=== PATIENT | female | born 1960 | race African-American/Black ===

== ENCOUNTER 2019-11-28 03:09 | Inpatient (IN) | payer SELFPAY ==
[~2019-11-28] VITALS: Ht 170.2 cm; Wt 119.3 kg
--- NOTE | ~2019-11-28 | CN ---
PATIENT NAME:ANSLEY DAS MEDICAL RECORD: [id number] : 58 LOCATION:D.MS Michael2228 ADMIT DATE: 11/28/19 ACCOUNT: [id number] CONSULTING PHYSICIAN: IRVING CARPIO MD REFERRING PHYSICIAN: COLT CANADA MD DATE OF CONSULTATION: 12/04/2019 CONSULT REQUESTING PHYSICIAN: Dr. Hale REASON FOR CONSULTATION: Right-sided pleural effusion, more than the left. HISTORY OF PRESENT ILLNESS: Ms. Das is a 59-year-old female who was transferred from [place] with a common bile duct obstruction and gallstones. The patient went for ERCP and then she underwent laparoscopic cholecystectomy. She has a CTA of the chest yesterday for pulmonary embolism. There is no pulmonary embolism, but the CTA did show there is a moderate large sized right-sided pleural effusion, small on the left. There is associated compressive atelectasis. The patient denies any chest pain. There are no fever and chill, no night sweats. There is no significant cough. REVIEW OF SYSTEMS: As in history of present illness. PAST SURGICAL HISTORY: 1. Tonsillectomy. 2. . 3. Hysterectomy. ALLERGIES: No known drug allergy. MEDICATIONS: On [employer] is reviewed. PERSONAL AND SOCIAL HISTORY: The patient is a nonsmoker, nondrinker. FAMILY HISTORY: Noncontributory. PHYSICAL EXAMINATION: GENERAL: Now, the patient is lying comfortably in bed. She is wearing nasal cannula. She is not in acute distress. VITAL SIGNS: The blood pressure is 188/106, pulse is 68, respiration 20, temperature 98.8, SpO2 is 98% on 2 liters nasal cannula. HEENT: Conjunctivae are pink. Sclerae nonicteric. NECK: Supple, no JVD. CHEST: There are decreased breath sounds at the right base with dullness on percussion. There are crackles. HEART: Rhythm regular, normal sound, no murmur. ABDOMEN: Soft, bowel sounds present. No hepatosplenomegaly. RECTAL: Deferred. EXTREMITIES: No cyanosis, no clubbing, no pedal edema. CENTRAL NERVOUS SYSTEM: The patient is awake and alert. There are no obvious cranial nerve abnormalities. The gait was not tested. LABORATORY DATA: CBC: The WBC is 10.7, hemoglobin 10.9, hematocrit 33.9, the platelet count 221. Chemistry: Sodium is 137, potassium 3.1, BUN is 6, creatinine 0.6. CONSULT REPORT [id number] DASANSLEY IMPRESSION: 1. Right-sided more pleural effusion on the left. Rule out congestive heart failure, possible fluid overload. 2. Acute hypoxic respiratory failure. 3. Atelectasis, right lower lobe, doubt pneumonia. 4. Status post laparoscopic cholecystectomy. 5. Cholelithiasis. 6. Hypertension. 7. Hypokalemia. RECOMMENDATIONS: 1. We will proceed with the thoracentesis. 2. Hold on antibiotic. 3. Check the proBNP and cardiac echo. 4. Hep-Lock the IV. 5. Further recommendation after the thoracentesis. Dr. Hale, thank you for involving me in the care of Ms. Das. TRANSINT:[id number] Voice Confirmation ID: [id number] DOCUMENT ID: [id number] IRVING CARPIO MD CC: [id number] DICTATION DATE: 12/04/191537 AUTOMOTIVE SOFTWARE ENGINEER: 12/05/19 0328 ADM IN [facility] [address] [place] [address]
--- NOTE | ~2019-11-28 | HEMODYNAMI ---
PATIENT:ANSLEY DAS MEDICAL RECORD: [id number] : 58 LOCATION:D.MS Michael2228 ADMISSION DATE: 11/28/19 Generatedon:11/29/201915:48 Patient name: ANSLEY DAS Patient #: [id number] SSN: D OB: 1960 Date of study: 11/29/2019 Page: Of Hemodynamic Procedure Report Patient Data Patient Demographics Procedure consent was obtained First Name: ANSLEY Gender: Female Last Name: THIAGO : 1960 Patient #: [id number] Age: 59 year(s) Race: Black Additional ID: [id number] Contact details Address: [address] [place] [address] State: [place] City: [place] Zip code: [address] Past Medical History Allergies: No known allergies Admission Admission Data Admission Date: 11/28/2019 Admission Time: 4:26 Room #: D.2228 Height (in.): 67 BSA: 2.28 (m2) Height (cm.): 170.18 BMI: 41.35 (kg/m2) Weight (lbs.): 264 Weight (kg.): 119.75 Procedure Procedure Types Cath Procedure Peripheral Cath Diagnostic Procedure Claims Support Specialist Peripheral Procedures Biliary Percutaneous Biliary Int/Ext Drain Placement Procedure Description Procedure Date Procedure Date: 11/29/2019 Procedure Start Time: 14:18 Procedure Staff Name Hayley Swain MD Performing Physician Lizeth Mae RT Construction Trench Digger Homero Taylor Jr, CRNA Additional personnel Zaira Whyte RN Nurse Antelmo Olivier RT Scrub Procedure Data Cath Procedure Fluoroscopy Diagnostic fluoroscopy Total fluoroscopy Time: time: 20.2 min 20.2 min Diagnostic fluoroscopy Total fluoroscopy dose: 968 dose: 968 mGy mGy Contrast Material Contrast Material Type Amount (ml) Isovue 300 80 Procedure Medications Medication Administration Route Dosage Heparin Flush Bag added to field 1 bags (1000units/500ml NS) Lidocaine 1% added to field 20 Hemodynamics Rest BSA: 2.28 (m2) O2 Consumption: Estimated: 219.73 (ml/min) O2 Consumption indexed : Estimated:96.37 (ml/min/m) Heart Rate: 74 (bpm) Snapshots Pre Cath Intra NCS Post Cath Vital Signs Time Heart Resp SPO2 etCO2 NIBP (mmHg) Rhythm Pain Sedation Rate (ipm) (%) (mmHg) Status Level (bpm) 13:58:28 74 22 100 43.2 184/99(150) NSR 0 (11) 10(A) , No pain 14:02:52 71 18 100 39.4 152/91(120) NSR 0 (11) 10(A) , No pain 14:07:08 73 11 99 43.9 144/81(107) NSR 0 (11) 10(A) , No pain 14:11:31 75 12 99 44.7 132/78(103) NSR 0 (11) 10(A) , No pain 14:15:48 76 12 99 44.7 129/78(94) NSR 0 (11) 10(A) , No pain 14:20:04 77 8 99 45.5 126/75(102) NSR 0 (11) 10(A) , No pain 14:24:23 76 14 99 44.7 132/76(101) NSR 0 (11) 10(A) , No pain 14:29:22 81 12 100 39.4 Measuring NSR 0 (11) 10(A) , No pain 14:29:38 82 14 100 40.2 146/91(141) NSR 0 (11) 10(A) , No pain 14:33:56 81 10 100 45.5 148/85(116) NSR 0 (11) 10(A) , No pain 14:38:12 80 13 99 46.2 148/89(113) NSR 0 (11) 10(A) , No pain 14:42:32 81 9 100 47 148/90(118) NSR 0 (11) 10(A) , No pain 14:46:44 83 12 97 53.8 130/89(108) NSR 0 (11) 10(A) , No pain 14:50:56 86 15 96 54.6 125/87(103) NSR 0 (11) 10(A) , No pain 14:55:12 86 17 97 56.1 125/80(113) NSR 0 (11) 10(A) , No pain 14:59:28 86 10 98 46.2 144/77(111) NSR 0 (11) 10(A) , No pain 15:03:52 86 9 96 57.6 126/80(120) NSR 0 (11) 10(A) , No pain 15:08:52 88 9 95 59.1 Measuring NSR 0 (11) 10(A) , No pain 15:09:06 88 9 95 59.9 121/80(99) NSR 0 (11) 10(A) , No pain 15:14:05 85 11 95 60.7 Measuring NSR 0 (11) 10(A) , No pain 15:14:25 88 8 96 59.1 113/82(93) NSR 0 (11) 10(A) , No pain 15:18:31 87 10 96 59.9 116/93(103) NSR 0 (11) 10(A) , No pain 15:22:43 89 15 98 48.5 132/79(102) NSR 0 (11) 10(A) , No pain 15:27:01 85 12 98 51.5 141/85(113) NSR 0 (11) 10(A) , No pain 15:31:19 86 12 96 56.1 136/83(114) NSR 0 (11) 10(A) , No pain 15:35:37 84 19 97 52.3 150/88(115) NSR 0 (11) 10(A) , No pain 15:39:51 84 17 98 44 143/92(104) NSR 0 (11) 10(A) , No pain 15:44:07 8 97 30.3 145/95(117) NSR 0 (11) 10(A) , No pain Medications Time Medication Route Dose Verified Delivered Reason Notes Effe ctiveness by by 14:31:42 Heparin Flush added 1 M J Long M J Long used for Bag to bags MD HAMILTON procedure (1000units/500ml field NS) 14:31:56 Lidocaine 1% added 20ml M J Long M J Long for local to vial MD HAMILTON anesthetic field Procedure Log Time Note 13:37:17 Patient Height : 67 inches 13:37:25 Patient Weight : 264 lbs 13:38:02 Use device set IR Diagnostic 13:38:04 Tegaderm 4 x 4 (1626W) opened to sterile field. 13:38:04 Sterile Angiographic Pack opened to sterile field. 13:38:06 Bag Decanter (2002S) opened to sterile field. 13:51:54 Time tracking: Regular hours (M-F 7:00 - 5:00) 13:52:18 Plan of Care:Hemodynamics will remain stable., Cardiac rhythm will remain stable., Comfort level will be maintained., Respiratory function will remain adequate., Patient/ family verbilizes understanding of procedure., Procedure tolerated without complication., Recovers from procedure without complications.. 13:52:25 Patient received from Med/Surg to IR Alert and oriented. Tansferred to table in Supine position. 13:52:29 Signed procedure consent form obtained from patient. 13:52:32 Correct patient and procedure confirmed by team. 13:52:48 H&P Date Dictated: 11/29/2019 Within 30 days and on chart.. 13:52:50 Pre-procedure instructions explained to patient. 13:52:51 Pre-op teaching completed and patient verbalized understanding. 13:52:54 Family in waiting room. 13:52:58 Patient NPO since Midnight. 13:53:08 Patient allergic to No known allergies 13:53:23 Is the patient allergic to Iodine/contrast media? No. 13:54:29 Patient diabetic? No. 13:54:33 - 13:54:50 KIT, INTRODUCER ACCUSTICK II W/C ([id number]) opened to sterile field. 13:55:01 - 13:55:04 ----Pre-sedation anethsthesia assessment.----SEE ANESTHESIA NOTES FOR MONITORING OF PATIENT DURING PROCEDURE 13:56:10 IV patent on arrival in right wrist with D5/.45%NaCl at O. 13:56:23 Right abdomen area was prepped with chlora-prep and draped in sterile fashion 13:56:33 Fire Safety Assessment: A--An alcohol-based skin anteseptic being used preoperatively., C--Open oxygen or nitrous oxide is being used. 13:56:58 - 13:57:02 ECG and BP/O2 sat monitors applied to patient. 13:57:03 Vital chart was started 13:57:05 Baseline sample Acquired. 13:57:07 Full Disclosure recording started 13:57:09 - 14:17:28 Physician arrived 14:17:29 --------ALL STOP TIME OUT------ 14:17:30 Final Timeout: patient, procedure, and site verified with staff and physician. All members of the team are in agreement. 14:18:16 Procedure started. 14:18:23 Local anesthetic to Abdominal area with Lidocaine 1% by Marimar Swain MD.INITIAL ACCESS ONLY 14:18:45 NITINOL .018 80cm wire ([id number]) opened to sterile field. 14:18:46 CHIBA 22 X 15 needle opened to sterile field. 14:31:42 Heparin Flush Bag (1000units/500ml NS) 1 bags added to field was administered by Marimar Swain MD; used for procedure; Verbal order read back and verified. 14:31:56 Lidocaine 1% 20ml vial added to field was administered by Marimar Swain MD; for local anesthetic; Verbal order read back and verified. 14:46:15 CHIBA 22 X 15 needle opened to sterile field. 15:18:16 Meng 180 wire (S97320) opened to sterile field. 15:18:18 TORQUE DEVICE PLASTIC .038 ( TD01) opened to sterile field. 15:18:19 GLIDE WIRE ANGLE 180cm (ON4850) opened to sterile field. 15:18:20 Cook BILIARY 8.5 FR drainage catheter (F47441) opened to sterile field. 15:18:21 STOPCOCK 3-Way Large Bore (S83152) opened to sterile field. 15:18:22 GLIDE CATHETER 5FR ANGLED 65cm (CG507) opened to sterile field. 15:18:23 BAG, DRAINAGE EMPTY 600ML W/ELHAM (MHL466) opened to sterile field. 15:22:39 AMPLATZ Super stiff 180cm wire ([id number]) opened to sterile field. 15:29:41 INFLATOR BasixTOUCH (GG5175) opened to sterile field. 15:30:12 Inflate balloon Inflation number: 1 A Evercross 5 x 4 x 135 Balloon ([id number]) was prepped and advanced across the Undefined1 , then inflated . 15:38:53 Procedure ended.(Physican Out) 15:39:21 Fluoroscopy time 20.20 minutes. 15:39:36 Fluoroscopy dose: 968 mGy 15:39:36 Flurop Dose total: 968 15:39:42 Contrast amount:Isovue 300 80ml. 15:39:45 Procedure and supply charges have been captured, reviewed, submitted an d are correct. 15:42:01 Report given to Med/Surg. 15:48:27 Vital chart was stopped Intervention Summary Intervention Notes Time ActionType Lesion and Equipment Used Action# Pressure Duration Attributes 15:30:12 Inflate Undefined1 Evercross 5 x 4 1 0 00:00 balloon x 135 Balloon ([id number]) Device Usage Item Name Manufacture Quantity Catalog Number Hospital Part Current M inimal Lot# / Charge Number Stock Stock Serial# Code Tegaderm 4 x 4 3M 1 1626W [id number] 142956 266253 5 (1626W) Sterile Cardinal 1 [id number] 219416 002114 5 Angiographic Health Pack Bag Decanter Microtek 1 527265 29438 380243 5 (2002S) Medical Inc. KIT, INTRODUCER Kinzers 1 [id number] 720595 793055 349414 5 ACCUSTICK II Scientific W/C ([id number]) NITINOL .018 Medtronic 1 [id number] 413851 191660 5 80cm wire (W751472) CHIBA 22 X 15 Cook Medical 2 B26362 251112 617735 5 [id number] needle [id number] Meng 180 wire Cook Medical 1 D05717 310708 973345 6827329 5 [id number] (W32097) TORQUE DEVICE Kinzers 1 TD01 530046 116621 995090 5 PLASTIC .038 ( Scientific TD01) GLIDE WIRE Terumo 1 VX7255 405188 700501 978869 5 ANGLE 180cm (IN2527) Cook BILIARY [employer] 1 R16860 317860 967765 5 9692398 8.5 FR drainage catheter (G58923) STOPCOCK 3-Way [facility] 1 N82992 872532 8687 384601 5 [id number] Large Bore (Y42401) GLIDE CATHETER Terumo 1 CG507 455307 467171 5 5FR ANGLED 65cm (CG507) BAG, DRAINAGE Merit 1 QUR478 635781 323122 355148 5 EMPTY 600ML Medical W/ELHAM (VRZ447) AMPLATZ Super Kinzers 1 [id number] 733341 054415 793283 5 stiff 180cm Scientific wire ([id number]) INFLATOR Merit 1 AE8886 327752 024847 744937 5 Rupeetalk (AG8177) Evercross 5 x 4 Medtronic 1 [id number] 790186 729512 432824 5 x 135 Balloon ([id number]) Signature Audit [place] Stage Time Signature Unsigned Intra-Procedure 11/29/2019 Lizeth Mae 3:48:23 PM RT(R) [address] [place] [address]
--- NOTE | ~2019-11-28 | HEMODYNAMI ---
PATIENT:ANSLEY DAS MEDICAL RECORD: [id number] : 58 LOCATION:D.MS [id number] ADMISSION DATE: 11/28/19 Generatedon:12/02/201910:19 Patient name: ANSLEY DAS Patient #: [id number] SSN: D OB: 1960 Date of study: 12/02/2019 Page: Of Hemodynamic Procedure Report Patient Data Patient Demographics Procedure consent was obtained First Name: ANSLEY Gender: Female Last Name: THIAGO : 1960 Patient #: [id number] Age: 59 year(s) Race: Black Additional ID: [id number] Contact details [address]: [address] [place] [address] State: [place] City: [place] Zip code: [address] Past Medical History Allergies: No known allergies Admission Admission Data Admission Date: 11/28/2019 Admission Time: 4:26 Room #: D.2228 Height (in.): 67 BSA: 2.28 (m2) Height (cm.): 170.18 BMI: 41.35 (kg/m2) Weight (lbs.): 264 Weight (kg.): 119.75 Procedure Procedure Types Cath Procedure Peripheral Cath Diagnostic Procedure Cement Mason Apprentice Peripheral Procedures Biliary Cholangio Thru Existing Procedure Description Procedure Date Procedure Date: 12/02/2019 Procedure Start Time: 9:30 Procedure Staff Name Function Jarocho Weiss MD Performing Physician Lizeth Mae RT Director [employer] Zaira Whyte RN Nurse Antelmo Olivier RT Scrub Procedure Data Cath Procedure Fluoroscopy Diagnostic fluoroscopy Total fluoroscopy Time: time: 10.1 min 10.1 min Diagnostic fluoroscopy Total fluoroscopy dose: 750 dose: 750 mGy mGy Contrast Material Contrast Material Type Amount (ml) Isovue 300 60 Procedure Medications Medication Administration Route Dosage Heparin Flush Bag added to field 2 bags (1000units/500ml NS) Lidocaine 1% added to field 20 Rocephin I.V. 1 g Versed I.V. 1 mg Fentanyl I.V. 50 mcg Versed I.V. 1 mg Fentanyl I.V. 50 mcg Versed I.V. 1 mg Fentanyl I.V. 50 mcg Benadryl I.V. 25 mg Versed I.V. 1 mg Fentanyl I.V. 50 mcg Hemodynamics Rest BSA: 2.28 (m2) O2 Consumption: Estimated: 256.5 (ml/min) O2 Consumption indexed: Estimated:112.5 (ml/min/m) Heart Rate: 117 (bpm) Snapshots Pre Cath Intra NCS Post Cath Vital Signs Time Heart Resp SPO2 etCO2 NIBP (mmHg) Rhythm Pain Sedation Rate (ipm) (%) (mmHg) Status Level (bpm) 9:02:14 116 33 98 0 Measuring NSR 0 (11) 10(A) , No pain 9:03:38 116 34 98 0 Time NSR 0 (11) 10(A) Exceeded , No pain 9:08:27 114 32 98 21.8 199/112(156) NSR 0 (11) 10(A) , No pain 9:13:04 115 26 98 26.3 196/115(152) NSR 0 (11) 10(A) , No pain 9:17:40 111 34 98 28.5 210/112(150) NSR 0 (11) 10(A) , No pain 9:22:23 112 33 99 18 196/113(153) NSR 0 (11) 10(A) , No pain 9:27:01 111 35 99 15 205/110(140) NSR 0 (11) 10(A) , No pain 9:32:00 113 36 99 13.5 Measuring NSR 0 (11) 10(A) , No pain 9:32:35 113 35 99 12.7 196/116(150) NSR 0 (11) 10(A) , No pain 9:37:08 108 30 99 12 186/108(146) NSR 0 (11) 10(A) , No pain 9:42:07 113 40 97 4.5 Measuring NSR 0 (11) 8(A) , No pain 9:42:41 110 31 97 1.5 210/118(151) NSR 0 (11) 10(A) , No pain 9:47:28 109 23 97 0.7 189/105(137) NSR 0 (11) 8(A) , No pain 9:52:01 105 14 98 0.7 173/98(132) NSR 0 (11) 8(A) , No pain 9:57:00 105 23 97 4.5 Measuring NSR 0 (11) 8(A) , No pain 9:57:26 106 22 97 3 180/105(134) NSR 0 (11) 8(A) , No pain 10:01:50 105 18 98 2.2 174/98(123) NSR 0 (11) 8(A) , No pain 10:06:04 104 14 98 0 156/99(128) NSR 0 (11) 8(A) , No pain 10:10:25 103 16 98 1.5 173/103(129) NSR 0 (11) 8(A) , No pain 10:14:10 103 19 99 10.5 178/102(132) NSR 0 (11) 8(A) , No pain 10:18:36 100 19 99 2.2 182/105(136) NSR 0 (11) 8(A) , No pain Medications Time Medication Route Dose Verified Delivered Reason Notes Effec tiveness by by 9:00:39 Heparin Flush added 2 Jarocho Avendaño used for Bag to bags Abhishek Weiss procedure (1000units/500ml field MD [place] NS) 9:00:50 Lidocaine 1% added 20ml Jarocho Avendaño for local to vial Abhishek Weiss anesthetic field MD [place] 9:37:10 Rocephin I.V. 1 g Jarocho Meneses Per Abhishek Whyte RN physician 9:37:20 Versed I.V. 1 mg Jarocho Meneses for Abhishek Whyte RN sedation 9:37:30 Fentanyl I.V. 50 Jarocho Meneses for mcg Abhishek Whyte RN sedation 9:41:52 Versed I.V. 1 mg Jarocho Meneses for Abhishek Whyte RN sedation 9:42:00 Fentanyl I.V. 50 Jarocho Meneses for mcg Abhishek Whyte RN sedation 9:47:17 Versed I.V. 1 mg Jarocho Meneses for Abhishek Whyte RN sedation 9:47:24 Fentanyl I.V. 50 Jarocho Meneses for mcg Abhishek Whyte RN sedation 9:51:26 Benadryl I.V. 25 mg Jarocho Meneses Per Abhishek Whyte RN physician MD 9:57:22 Versed I.V. 1 mg Jarocho Meneses for Abhishek Whyte RN sedation 9:57:29 Fentanyl I.V. 50 Jarocho Meneses for muscogee Abhishek Whyte RN sedation MD Procedure Log Time Note 7:43:43 Patient Height : 67 inches 7:43:44 Patient Weight : 264 lbs 7:44:04 Use device set IR Diagnostic 7:44:09 Tegaderm 4 x 4 (1626W) opened to sterile field. 7:44:10 Sterile Angiographic Pack opened to sterile field. 7:44:11 Bag Decanter (2002S) opened to sterile field. 7:45:17 - 8:50:40 Time tracking: Regular hours (M-F 7:00 - 5:00) 8:50:57 Plan of Care:Hemodynamics will remain stable., Cardiac rhythm will remain stable., Comfort level will be maintained., Respiratory function will remain adequate., Patient/ family verbilizes understanding of procedure., Procedure tolerated without complication., Recovers from procedure without complications.. 8:52:11 Patient received from Med/Surg to IR Alert and oriented. Tansferred to table in Supine position. 8:52:18 Signed procedure consent form obtained from patient. 8:52:24 H&P Date Dictated: 12/02/2019 Within 30 days and on chart.. 8:52:27 Pre-procedure instructions explained to patient. 8:52:28 Pre-op teaching completed and patient verbalized understanding. 8:52:37 Family unavailable. 8:52:40 Patient NPO since Midnight. 8:52:53 Patient allergic to No known allergies 8:53:06 Is the patient allergic to Iodine/contrast media? No. 8:53:11 Is patient on blood thinner?No 8:53:13 Patient diabetic? No. 8:53:17 - 8:53:18 ----Pre-sedation anethsthesia assessment.---- 8:53:23 Previous problem with sedation/anesthesia? No ? 8:53:36 Snore? No 8:53:43 Sleep apnea? No 8:53:48 Deviated septum? No 8:53:52 Opens mouth fully? Yes 8:53:56 Sticks out tongue? Yes 8:54:00 Airway obstruction? No ? 8:54:04 Dentures? No ? 8:54:06 - 8:54:15 IV patent on arrival in right wrist with D5/.45%NaCl at KVO. 9:00:25 Vital chart was started 9:00:39 Heparin Flush Bag (1000units/500ml NS) 2 bags added to field was administered by Jarocho Weiss MD; used for procedure; Verbal order read back and verified. 9:00:50 Lidocaine 1% 20ml vial added to field was administered by Jarocho hernadez MD; for local anesthetic; Verbal order read back and verified. 9:01:09 Baseline sample Acquired. 9:01:17 Full Disclosure recording started 9:01:21 ECG and BP/O2 sat monitors applied to patient. 9:04:04 - 9:04:09 Baseline sample Acquired. 9:04:51 1) 90+ Normal kidney functon but urine findings or structural abnormalities or genetic trait point to kidney disease. 9:05:02 Fire Safety Assessment: A--An alcohol-based skin anteseptic being used preoperatively., C--Open oxygen or nitrous oxide is being used. 9:29:05 Physician arrived 9:29:06 --------ALL STOP TIME OUT------ 9:29:09 Final Timeout: patient, procedure, and site verified with staff and physician. All members of the team are in agreement. 9:29:10 Final Timeout: patient, procedure, and site verified with staff and physician. All members of the team are in agreement. 9:30:15 Procedure started. 9:30:22 Local anesthetic to Abdominal area with Lidocaine 1% by Jarocho Weiss MD.INITIAL ACCESS ONLY 9:33:46 CLAUDE .035 15cm wire ([id number]) opened to sterile field. 9:33:48 Cook BILIARY 8.5 FR drainage catheter ([id number]) opened to sterile field. 9:37:10 Rocephin 1 g I.V. was administered by Zaira Whyte RN; Per physician; Verbal order read back and verified. 9:37:20 Versed 1 mg I.V. was administered by Zaira Whyte RN; for sedation; Verbal order read back and verified. 9:37:30 Fentanyl 50 mcg I.V. was administered by Zaira Whyte RN; for sedation ; Verbal order read back and verified. 9:38:30 SHEATH 7FR X 25CM RADIOPAUQE PINNICALE (GRR894) opened to sterile field . 9:41:52 Versed 1 mg I.V. was administered by Zaira Whyte RN; for sedation; Verbal order read back and verified. 9:42:00 Fentanyl 50 mcg I.V. was administered by Zaira Whyte RN; for sedation ; Verbal order read back and verified. 9:43:32 INFLATOR BasixTOUCH (TF1296) opened to sterile field. 9:43:33 Dashawn 5Fr OTW embolectomy catheter opened to sterile field. 9:44:00 Inflate balloon Inflation number: 1 A CONQUEST 10 x 4 x 75CM balloon ([id number]) was prepped and advanced across the Undefined1 , then inflated . 9:47:17 Versed 1 mg I.V. was administered by Zaira Whyte RN; for sedation; Verbal order read back and verified. 9:47:24 Fentanyl 50 mcg I.V. was administered by Zaira Whyte RN; for sedation ; Verbal order read back and verified. 9:51:26 Benadryl 25 mg I.V. was administered by Zaira Whyte RN; Per physician ; Verbal order read back and verified. 9:51:40 AMPLATZ Super stiff 180cm wire ([id number]) opened to sterile field. 9:57:22 Versed 1 mg I.V. was administered by Zaira Whyte RN; for sedation; Verbal order read back and verified. 9:57:29 Fentanyl 50 mcg I.V. was administered by Zaira Whyte RN; for sedation ; Verbal order read back and verified. 10:01:46 STOPCOCK 3-Way Large Bore ([id number]) opened to sterile field. 10:01:48 BAG, DRAINAGE EMPTY 600ML W/ELHAM ([id number]) opened to sterile field. 10:02:04 SUTURE ETHILON 2-0 BLK MONO FS opened to sterile field. 10:02:05 SUTURE ETHILON 2-0 BLK MONO FS opened to sterile field. 10:08:24 Procedure ended.(Physican Out) 10:08:39 Fluoroscopy time 10.10 minutes. 10:09:08 Fluoroscopy dose: 750 mGy 10:09:08 Flurop Dose total: 750 10:09:17 Contrast amount:Isovue 300 60ml. 10:09:20 Procedure and supply charges have been captured, reviewed, submitted an d are correct. 10:18:32 Report given to Med/Surg. 10:18:59 Vital chart was stopped Intervention Summary Intervention Notes Time ActionType Lesion and Equipment Action# Pressure Duration Attributes Used 9:44:00 Inflate Undefined1 CONQUEST 1 0 00:00 balloon 10 x 4 x 75CM balloon ([id number]) Device Usage Item Name Manufacture Quantity Catalog Hospital Part Current Minima l Lot# / Number Charge Number Stock Stock Serial# Code Tegaderm 4 x 3M 1 1626W [id number] 194150 5 4 (1626W) Sterile Cardinal 1 [id number] 944436 344305 5 Angiographic Health Pack Bag Decanter Microtek 1 [id number] 23461 861646 5 () Medical Inc. CLAUDE .035 Cook Medical 1 [id number] 397130 555170 5 [id number] 15cm wire ([id number]) Cook BILIARY Cook Medical 1 [id number] 942512 150108 5 [id number] 8.5 FR drainage catheter ([id number]) SHEATH 7FR X Terumo 1 [id number] 436082 878191 434522 1 25CM RADIOPAUQE PINNICALE (KYO245) INFLATOR Merit 1 SA3385 610864 947819 300806 5 [facility] (DV8735) Dashawn 5Fr [place]ays 1 [id number] 035609 771268 901385 5 [facility] Lifescimercyone [facility] embolectomy catheter CONQUEST 10 Bard 1 [id number] 899139 070889 359204 5 x 4 x 75CM balloon ([id number]) AMPLATZ [place] 1 [id number] 396644 952729 761024 5 Super stiff Scientific 180cm wire ([id number]) STOPCO Cook Medical 1 J21502 101844 5762 970756 [address] [id number] 3-Way Large Bore ([id number]) BAG, Merit 1 SCL979 955950 716545 317529 5 [id number] DRAINAGE Medical EMPTY 600ML W/ELHAM (FYC238) SUTURE Ethicon 2 [id number] 136120 403645 5 ETHILON 2-0 BLK MONO FS Signature Audit Coila Stage Time Signature Unsigned Intra-Procedure 12/02/2019 Lzieth Mae 10:18:55 AM RT(R) [facility] [address] [place] [address]
[2019-11-28] MEDS ORDERED: ASCORBIC ACID500 MG PO (03:17)
[2019-11-28 03:52] LABS: BASOPHILS 0.1 % (0-2); EOSINOPHILS 0.4 % (0-7); HEMATOCRIT 36.6 % (36.0-48.0); HEMOGLOBIN 11.7 g/dL (12-16); IMMATURE GRANULOCYTES 0.5 % (0-5); LYMPHOCYTES 23.1 % (15-50); MCH 27.8 pg (26.0-34.0); MCV 86.9 fL (80.0-100.0); MEAN PLATELET VOLUME 9.2 fL (7.4-10.4); MONOCYTES 6.5 % (2-11); NEUTROPHILS 69.4 % (40-80); PLATELET COUNT 258 10x3/uL (130-400); RBC 4.21 10x6/uL (4.00-5.40); RDW 15.7 % (11.5-14.5); WBC 7.4 10x3/uL (4.8-10.8)
[2019-11-28 03:58] LABS: CALC OSMOLALITY 280 mosm/kg (275-300); CALCIUM 8.4 mg/dL (8.5-10.1); CARBON DIOXIDE 30.7 mmol/L (21.0-32.0); CHLORIDE - SERUM 106 mmol/L (98-107); CREATININE - SERUM 0.8 mg/dL (0.6-1.3); GLUCOSE 103 mg/dL (74-106); SODIUM 141 mmol/L (136-145); UREA NITROGEN 12 mg/dL (7-18); eGFR NON AFRICAN AMERICAN 77 mL/min (90-120)
[2019-11-28 03:59] LABS: INR 0.98 (0.85-1.17); PROTIME 12.5 SECONDS (11.6-15.0)
[2019-11-28 04:03] LABS: ALBUMIN 3.1 g/dL (3.4-5.0); ALKALINE PHOSPHATASE 127 U/L (46-116); ALT (SGPT) 69 U/L (10-68); BILIRUBIN - TOTAL 0.38 mg/dL (0.2-1.3); PROTEIN - SERUM 6.8 g/dL (6.4-8.2)
--- NOTE | 2019-11-28 05:45 | NUR ---
PT ARRIVED TO UNIT VIA WHEELCHAIR AT 0520 ESCORTED BY ER NURSE. ORIENTED TO ROOM AND CALL LIGHT. PROVIDED GOWN AND TOILETRIES. PT IS NPO AT THIS TIME WITH SIGNAGE ON DOOR. IV FLUIDS STARTED PER ORDER AT 100 ML/HR.
[2019-11-28 05:47] VITALS: BP 169/88; BMI 41.4
--- NOTE | 2019-11-28 05:56 | NUR ---
ADMISSION ASSESSMENT AND HISTORY COMPLETE. MED REC REVIEWED WITH PT.
--- NOTE | 2019-11-28 07:15 | NUR ---
PT AWAKE AND ORIENTED, LYING IN BED. NO COMPLAITNS OR CONCERNS, NO FAMILY AT BEDSIDE. ALL QUSESTIONS ANSWERED TO THE BEST OF MY ABILITY. CL IN REACH, SRX2.
[2019-11-28 08:11] VITALS: BP 153/95
--- NOTE | 2019-11-28 10:03 | NUR ---
PT HAS BEEN AWAKE AND ORIENTED, CURRENTY IN MRI. MOVES WELLL WITHOUT ASSIT. CL IN REACH, SRX2.
--- NOTE | 2019-11-28 10:25 | NUR ---
PT BACK FROM MRI. SETTLED IN ROOM, I/V BACK ON WORKING WNL.
--- NOTE | 2019-11-28 10:48 | NUR ---
I have reviewed this patient and I concur with the Shift Assessment completed by the Licensed Practical Nurse today this shift.
[2019-11-28 14:04] VITALS: BP 173/98
--- NOTE | 2019-11-28 14:12 | NUR ---
PT AWAKE AND ORIENTED, NO COMPLAINTS OR CONCERNS. CL IN REACH, SRX2.
[2019-11-28 16:18] VITALS: BP 163/93
--- NOTE | 2019-11-28 18:33 | NUR ---
PT STILL I MANNIE, HAVE NTO RECIEVED REPORT.
[2019-11-28 18:45] VITALS: BP 133/88
--- NOTE | 2019-11-28 19:00 | NUR ---
BEDSIDE REPORT RECEIVED AND CARE OF PT ASSUMED. PT LYING IN SUPINE POSITION WITH EYES CLOSED AND EASY RESPIRATIONS. IV TO LEFT HAND PATENT WITH NS INFUSING AT 100 ML/HR. WILL MONITOR FOR NEEDS.
[2019-11-28 20:00] VITALS: BP 142/94
--- NOTE | 2019-11-28 21:50 | NUR ---
PT RESTING IN SUPINE POSITION. DENIES NEED FOR PAIN MED AT THIS TIME. WILL CONTINUE TO MONITOR FOR NEEDS.
[2019-11-29] VITALS: BP 135/85
--- NOTE | 2019-11-29 03:22 | NUR ---
PT C/O SORE THROAT AND REQUESTING MED. RECEIVED ORDER FOR CHLORASEPTIC SPRAY TO USE PRN. LEFT AT BEDSIDE.
[2019-11-29 04:00] VITALS: BP 162/89
--- NOTE | 2019-11-29 06:00 | NUR ---
HIBACLENS SHOWER PERFORMED AND ALL LINENS AND GOWN CHANGED.
[2019-11-29 06:42] LABS: BASOPHILS 0.2 % (0-2); HEMATOCRIT 36.1 % (36.0-48.0); HEMOGLOBIN 11.4 g/dL (12-16); IMMATURE GRANULOCYTES 0.2 % (0-5); LYMPHOCYTES 30.5 % (15-50); MCH 27.9 pg (26.0-34.0); MCHC 31.6 g/dL (31.0-37.0); MCV 88.3 fL (80.0-100.0); MEAN PLATELET VOLUME 9.9 fL (7.4-10.4); MONOCYTES 7.7 % (2-11); NEUTROPHILS 60.4 % (40-80); PLATELET COUNT 247 10x3/uL (130-400); RBC 4.09 10x6/uL (4.00-5.40); RDW 15.9 % (11.5-14.5)
[2019-11-29 06:43] LABS: WBC 4.2 10x3/uL (4.8-10.8)
--- NOTE | 2019-11-29 06:52 | NUR ---
LEFT HAND SWOLLEN...REMOVED IV WITH CATHETER TIP INTACT. RE-SITED RO RIGHT WRIST USING 20 GUAGE CATHETER IN ONE STICK. IV FLUIDS RE-STARTED.
[2019-11-29 06:54] LABS: ALBUMIN 2.8 g/dL (3.4-5.0); ALKALINE PHOSPHATASE 123 U/L (46-116); BILIRUBIN - TOTAL 0.47 mg/dL (0.2-1.3); CALC OSMOLALITY 282 mosm/kg (275-300); CALCIUM 8.2 mg/dL (8.5-10.1); CARBON DIOXIDE 28.3 mmol/L (21.0-32.0); CHLORIDE - SERUM 110 mmol/L (98-107); CREATININE - SERUM 0.8 mg/dL (0.6-1.3); GLUCOSE 80 mg/dL (74-106); MAGNESIUM - SERUM 2.2 mg/dL (1.8-2.4); PHOSPHOROUS 3.5 mg/dL (2.5-4.9); POTASSIUM - SERUM 3.6 mmol/L (3.5-5.1); PROTEIN - SERUM 6.3 g/dL (6.4-8.2); SODIUM 143 mmol/L (136-145); UREA NITROGEN 10 mg/dL (7-18); eGFR NON AFRICAN AMERICAN 77 mL/min (90-120)
[2019-11-29 06:55] LABS: ALT (SGPT) 49 U/L (10-68)
[2019-11-29 07:54] VITALS: BP 151/88
--- NOTE | 2019-11-29 08:00 | NUR ---
ASSESSMENT PER FLOW SHEET. PT IS WITHOUT DISTRESS.NPO FOR PROCEDURE TODAY.MONITOR FOR NEEDS.CALL LIGHT IN REACH
[2019-11-29 13:57] VITALS: BP 132/48
[2019-11-29 17:53] VITALS: BP 160/80
--- NOTE | 2019-11-29 18:45 | NUR ---
STILL COMPLAINS OF PAIN AND FEELING SHORT OF BREATH,SATS 93-95% ON 3 LITERS PER NASAL CANULA. PT STATES PAIN STILL 10/10 TO RIGH SIDE.ORDERS RECIEVED AND INITIATED PER TREASURE ANDRADE APN.
[2019-11-29 19:28] LABS: BASOPHILS 0.1 % (0-2); EOSINOPHILS 0.1 % (0-7); HEMATOCRIT 38.9 % (36.0-48.0); HEMOGLOBIN 12.4 g/dL (12-16); IMMATURE GRANULOCYTES 0.7 % (0-5); LYMPHOCYTES 10.7 % (15-50); MCH 28.2 pg (26.0-34.0); MCHC 31.9 g/dL (31.0-37.0); MCV 88.4 fL (80.0-100.0); MEAN PLATELET VOLUME 9.4 fL (7.4-10.4); MONOCYTES 5.9 % (2-11); NEUTROPHILS 82.5 % (40-80); PLATELET COUNT 272 10x3/uL (130-400); RDW 15.6 % (11.5-14.5)
[2019-11-29 19:32] LABS: WBC 10.1 10x3/uL (4.8-10.8)
[2019-11-29 20:52] VITALS: BP 150/90
[2019-11-30] VITALS (7 sets, daily range): BP systolic 143–163; BP diastolic 74–100
--- NOTE | 2019-11-30 01:12 | NUR ---
I have reviewed this patient and I concur with the Shift Assessment completed by the Licensed Practical Nurse today this shift.
--- NOTE | 2019-11-30 04:24 | NUR ---
PT RESTING IN BED. ALERT AND ORIENTED. NO SIGNS OF DISTRESS. BREATHING EVEN AND UNLABORED. IV SITE RT FA DRESSING CLEAN DRY AND INTACT. NO SIGNS OF INFECTION. 2LO2 NASAL CANNULA. LUNG SOUNDS CLEAR. BOWEL SOUNDS ACTIVE. SKIN CLEAN DRY AND INTACT. NO LOWER LEG SWELLING PRESENT. WILL CONTINUE PLAN OF CARE. CALL LIGHT IN REACH. BED LOWERED AND LOCKED. BED RAILS UPX2.
[2019-11-30 06:50] LABS: BASOPHILS 0 % (0-2); EOSINOPHILS 0 % (0-7); HEMOGLOBIN 11.6 g/dL (12-16); IMMATURE GRANULOCYTES 0.4 % (0-5); LYMPHOCYTES 4.7 % (15-50); MCH 27.5 pg (26.0-34.0); MCHC 31.4 g/dL (31.0-37.0); MCV 87.7 fL (80.0-100.0); MEAN PLATELET VOLUME 9.4 fL (7.4-10.4); NEUTROPHILS 88.9 % (40-80); PLATELET COUNT 247 10x3/uL (130-400); RBC 4.22 10x6/uL (4.00-5.40); RDW 15.9 % (11.5-14.5)
[2019-11-30 07:08] LABS: WBC 13.1 10x3/uL (4.8-10.8)
[2019-11-30 07:10] LABS: ALBUMIN 2.9 g/dL (3.4-5.0); ALKALINE PHOSPHATASE 126 U/L (46-116); ALT (SGPT) 58 U/L (10-68); BILIRUBIN - TOTAL 0.46 mg/dL (0.2-1.3); CALC OSMOLALITY 282 mosm/kg (275-300); CALCIUM 8.1 mg/dL (8.5-10.1); CARBON DIOXIDE 25.9 mmol/L (21.0-32.0); CHLORIDE - SERUM 107 mmol/L (98-107); CREATININE - SERUM 0.7 mg/dL (0.6-1.3); GLUCOSE 99 mg/dL (74-106); POTASSIUM - SERUM 3.7 mmol/L (3.5-5.1); PROTEIN - SERUM 6.6 g/dL (6.4-8.2); SODIUM 142 mmol/L (136-145); UREA NITROGEN 12 mg/dL (7-18); eGFR NON AFRICAN AMERICAN 90 mL/min (90-120)
--- NOTE | 2019-11-30 08:00 | NUR ---
ASSESSMENT PER FLOW SHEET. PAIN MEDS ORDERED PER JAN. NPO FOR SURGERY TODAY. MONITOR FOR NEEDS.CALL LIGHT IN REACH
--- NOTE | 2019-11-30 10:58 | NUR ---
PREMEDS ORDERED PER MAR
--- NOTE | 2019-11-30 11:23 | NUR ---
TO OR VIA BED
--- NOTE | 2019-11-30 12:40 | NUR ---
PATIENT HAS BILARY CATH PRESENT, WHEN PLACING LUGO CATH HAD OFF WHITE CREAM FLUID COMING FROM PERINEUM, DR VALENCIA NOTIFIED AND OBSERVED THIS, OMIDRLUCY.
--- NOTE | 2019-11-30 13:02 | NUR ---
VIKY [id number] EXP 07/20/2024
--- NOTE | 2019-11-30 15:11 | NUR ---
HAS BEEN BACK IN ROOM. PT IS WITHOUT DISTRESS. LAP SITES X4 CLEAN AND DRY WITHOUT DRAINAGE. PT IS WITHOUT SIGNS OF PAIN. FAMILY AT BEDSIDE. TOLERATING SIPS OF WATER.
--- NOTE | 2019-11-30 15:12 | NUR ---
BACK IN ROOM FOR A WHILE. LAP X4 CLEAN AND DRY. BILI DRAIN EMPTIED 200CC OF BILE COLORED DRAINAGE. LUGO TO GRAVITY WITH CLEAR. YELLOW URINE. SIPS OF WATER WITHOUT NAUSEA.FAMILY AT BEDSIDE.
--- NOTE | 2019-11-30 15:19 | MORECARE ---
CASE MANAGEMENT DISCHARGE SUMMARY PATIENT: ANSLEY DAS UNIT: [id number] ADM DATE: 11/28/19 AGE: 59 : 58 SEX: F ROOM/BED: D.2228 AUTHOR: MITCHELL MARKS PHYSICIAN: REFERRING PHYSICIAN: COLT CANADA MD DATE OF SERVICE: 11/30/19 Discharge Plan Patient Name: ANSLEY DAS Facility: [facility]:[place] : 1960 Planned Disposition: Home Anticipated Discharge Date: 12/01/19 Discharge Date: Expected LOS: 3 Initial Reviewer: [email or web address] Initial Review Date: 11/30/2019 Generated: 11/30/19 4:19 pm Comments DCP- Discharge Planning Updated by [email or web address]: Angie Davalos on 11/30/19 2:[address] Patient Name: ANSLEY DAS Admission Status: ER Accout number: [id number] Admission Date: 11-28-2019 : 1960 Admission Diagnosis: Attending: COLT CANADA Current LOS: 2 Anticipated DC Date: 12-01-2019 Planned Disposition: Home Primary Insurance: UNINSURED DISCOUNT PLAN Discharge Planning Comments: CM met with patient to complete initial dc planning assessment. CM educated patient on the CM role and verbal consent given by patient to complete assessment. Patient lives at home with her daughter (Mili). Her mother is on hospice and also living in the home. At discharge patient plans to return and feels this is a safe discharge. CM discussed availability of home health, rehab services, and medical equipment. Patient denied known discharge needs at this time. Mili (daughter) will drive her home on discharge. CM will continue to follow and will assist as needed with dc plans/needs. Shuttle Route Vehicle Operator: Angie Davalos DCPIA - Discharge Planning Initial Assessment Updated by [email or web address]: Angie Davalos on 11/30/19 3:14 pm * Is the patient Alert and Oriented? Yes * How many steps to enter\exit or inside your home? 12/24 * PCP Dr. Pineda in [place] * Pharmacy [facility] in [place] * Preadmission Environment Home with Family * ADLs Independent * Equipment None * List name and contact numbers for known caregivers / representatives who currently or will assist patient after discharge: Mili Cuenca - DTR - [phone] * Verbal permission to speak to the caregivers and representatives has been obtained from the patient. Yes * Community resources currently utilized None * Additional services required to return to the preadmission environment? No * Can the patient safely return to the preadmission environment? Yes * Has this patient been hospitalized within the prior 30 days at any hospital? No Patient Name: ANSLEY DAS Page [phone] at 1519 All edits/amendments must be made on the electronic document DICTATION DATE: 11/30/191518 SAFETY TECH: YOSHI 11/30/191518 RPT#: [id number] DC DATE: STATUS: ADM IN [facility] [address] [place] [address] END OF REPORT
--- NOTE | 2019-11-30 18:39 | NUR ---
STILL VERY SLEEPY. ATE BITES OF FULL LIQUID DIET AND SIPS OF WATER. PAIN MEDS PER MAR ORDERED CONTROLLING PAIN.CONT PLAN OF CARE
[2019-12-01 00:30] VITALS: BP 137/80
[2019-12-01 05:26] LABS: BASOPHILS 0 % (0-2); EOSINOPHILS 0 % (0-7); HEMOGLOBIN 11.9 g/dL (12-16); IMMATURE GRANULOCYTES 0.3 % (0-5); LYMPHOCYTES 3.6 % (15-50); MCH 28.1 pg (26.0-34.0); MCHC 32.2 g/dL (31.0-37.0); MCV 87.3 fL (80.0-100.0); MEAN PLATELET VOLUME 9.6 fL (7.4-10.4); MONOCYTES 5.4 % (2-11); NEUTROPHILS 90.7 % (40-80); PLATELET COUNT 267 10x3/uL (130-400); RBC 4.24 10x6/uL (4.00-5.40); RDW 15.9 % (11.5-14.5); WBC 15.4 10x3/uL (4.8-10.8)
--- NOTE | 2019-12-01 05:26 | NUR ---
I have reviewed this patient and I concur with the Shift Assessment completed by the Licensed Practical Nurse today this shift.
[2019-12-01 05:30] VITALS: BP 178/88
[2019-12-01 05:48] LABS: ALBUMIN 2.6 g/dL (3.4-5.0); ALKALINE PHOSPHATASE 113 U/L (46-116); BILIRUBIN - TOTAL 0.74 mg/dL (0.2-1.3); CALC OSMOLALITY 277 mosm/kg (275-300); CALCIUM 8.1 mg/dL (8.5-10.1); CARBON DIOXIDE 26.7 mmol/L (21.0-32.0); CHLORIDE - SERUM 103 mmol/L (98-107); CREATININE - SERUM 0.7 mg/dL (0.6-1.3); GLUCOSE 132 mg/dL (74-106); POTASSIUM - SERUM 3.5 mmol/L (3.5-5.1); PROTEIN - SERUM 6.7 g/dL (6.4-8.2); SODIUM 138 mmol/L (136-145); UREA NITROGEN 12 mg/dL (7-18); eGFR NON AFRICAN AMERICAN 90 mL/min (90-120)
[2019-12-01 05:57] LABS: ALT (SGPT) 181 U/L (10-68)
--- NOTE | 2019-12-01 06:11 | NUR ---
PT RESTING IN BED. EYES CLOSED. NO SIGNS OF DISTRESS. BREATHING EVEN AND UNLABROED. IV SITE RT FA DRESSING CLEAN DRY AND INTACT. NO SIGNS OF INFECITON. 2LO2 NASAL CANNULA. LAP SITES X5 ABD CLEAN DRY AND INTACT. BILI DRAIN RT UPPER ABD NO OUTPUT. LUGO IN PLACE. WILL CONTINUE PLAN OF CARE. CALL LIGHT IN REACH. BED LOWERED AND LOCKED. BED RAILS UPX2.
--- NOTE | 2019-12-01 08:06 | NUR ---
PATIENT RECIEVED RESTING IN BED WITH EYES CLOSED, NO NEEDS VOICED. POST OP DAY 1 FOLLOWING GALLBLADDER REMOVAL. DRESSINGS C/D/I. LEFT BILI DRAIN WITH NO DRAINAGE NOTED AT THIS TIME. CL IN REACH
[2019-12-01 09:20] VITALS: BP 180/99
[2019-12-01 12:31] VITALS: BP 136/85
[2019-12-01 17:36] VITALS: BP 150/83
[2019-12-01 19:30] VITALS: BP 149/85
[2019-12-02 00:30] VITALS: BP 152/82
[2019-12-02 05:30] VITALS: BP 153/92
[2019-12-02 06:29] LABS: BASOPHILS 0 % (0-2); EOSINOPHILS 0 % (0-7); HEMATOCRIT 33.8 % (36.0-48.0); HEMOGLOBIN 10.8 g/dL (12-16); IMMATURE GRANULOCYTES 0.4 % (0-5); LYMPHOCYTES 3.9 % (15-50); MCH 27.8 pg (26.0-34.0); MCV 86.9 fL (80.0-100.0); MEAN PLATELET VOLUME 9.7 fL (7.4-10.4); MONOCYTES 5.8 % (2-11); NEUTROPHILS 89.9 % (40-80); RBC 3.89 10x6/uL (4.00-5.40); RDW 16.3 % (11.5-14.5); WBC 13.8 10x3/uL (4.8-10.8)
[2019-12-02 06:46] LABS: PLATELET COUNT 202 10x3/uL (130-400)
[2019-12-02 06:47] LABS: ALBUMIN 2.2 g/dL (3.4-5.0); ALKALINE PHOSPHATASE 98 U/L (46-116); BILIRUBIN - TOTAL 0.96 mg/dL (0.2-1.3); CALC OSMOLALITY 279 mosm/kg (275-300); CALCIUM 8.1 mg/dL (8.5-10.1); CARBON DIOXIDE 27.5 mmol/L (21.0-32.0); CHLORIDE - SERUM 106 mmol/L (98-107); CREATININE - SERUM 0.7 mg/dL (0.6-1.3); GLUCOSE 108 mg/dL (74-106); POTASSIUM - SERUM 3.7 mmol/L (3.5-5.1); PROTEIN - SERUM 6.1 g/dL (6.4-8.2); SODIUM 140 mmol/L (136-145); UREA NITROGEN 13 mg/dL (7-18); eGFR NON AFRICAN AMERICAN 90 mL/min (90-120)
[2019-12-02 06:52] LABS: ALT (SGPT) 120 U/L (10-68)
[2019-12-02 06:56] LABS: INR 1.33 (0.85-1.17); PROTIME 16.3 SECONDS (11.6-15.0)
[2019-12-02 09:24] VITALS: BP 183/87
[2019-12-02 12:27] VITALS: Ht 170.2 cm; Wt 119.3 kg
[2019-12-02 13:41] VITALS: BP 171/97
[2019-12-02 17:16] VITALS: BP 173/90
[2019-12-02 20:00] VITALS: BP 194/107
[2019-12-03] VITALS: BP 142/85
--- NOTE | 2019-12-03 01:55 | NUR ---
I have reviewed this patient and I concur with the Shift Assessment completed by the Licensed Practical Nurse today this shift.
--- NOTE | 2019-12-03 02:13 | NUR ---
PT RESTING IN BED. EYES CLOSED. NO SIGNS OF DISTRESS. BREATHING EVEN AND UNLABORED. IV SITE RT HAND DRESSING CLEAN DRY AND INTACT. NO SIGNS OF INFECTION OR INFULTRATION. LUNG SOUNDS CLEAR. 2LO2 NASAL CANNULA. BOWEL SOUNDS ACTIVE. ABD LAP SITES CLEAN DRY AND INTACT. RT UPPER BILI DRAIN DRESSING CLEAN DRY AND INTACT. LUGO CLEAN DRY AND INTACT. NO LOWER LEG SWELLING PRESENT. WILL CONTINUE PLAN OF CARE. CALL LIGHT IN REACH. BED LOWERED AND LOCKED. BED RAILS UPX2.
[2019-12-03 04:00] VITALS: BP 160/90
[2019-12-03 06:31] LABS: BASOPHILS 0 % (0-2); EOSINOPHILS 0.1 % (0-7); HEMATOCRIT 31.8 % (36.0-48.0); IMMATURE GRANULOCYTES 0.2 % (0-5); LYMPHOCYTES 5.9 % (15-50); MCH 27.4 pg (26.0-34.0); MCHC 31.4 g/dL (31.0-37.0); MCV 87.1 fL (80.0-100.0); MEAN PLATELET VOLUME 9.8 fL (7.4-10.4); MONOCYTES 9.5 % (2-11); NEUTROPHILS 84.3 % (40-80); PLATELET COUNT 204 10x3/uL (130-400); RBC 3.65 10x6/uL (4.00-5.40); RDW 16.4 % (11.5-14.5)
[2019-12-03 06:43] LABS: WBC 9.1 10x3/uL (4.8-10.8)
[2019-12-03 07:13] LABS: ALBUMIN 1.9 g/dL (3.4-5.0); ALKALINE PHOSPHATASE 115 U/L (46-116); CALC OSMOLALITY 276 mosm/kg (275-300); CALCIUM 7.7 mg/dL (8.5-10.1); CARBON DIOXIDE 26.9 mmol/L (21.0-32.0); CHLORIDE - SERUM 105 mmol/L (98-107); CREATININE - SERUM 0.6 mg/dL (0.6-1.3); GLUCOSE 91 mg/dL (74-106); POTASSIUM - SERUM 3.6 mmol/L (3.5-5.1); PROTEIN - SERUM 5.8 g/dL (6.4-8.2); SODIUM 139 mmol/L (136-145); UREA NITROGEN 10 mg/dL (7-18); eGFR NON AFRICAN AMERICAN > 90 mL/min (90-120)
[2019-12-03 07:16] LABS: ALT (SGPT) 85 U/L (10-68)
[2019-12-03 09:13] VITALS: BP 186/63
[2019-12-03] MEDS ORDERED: ULTRAM50 MG PO (09:37)
--- NOTE | 2019-12-03 11:35 | NUR ---
PT ANXIOUS ABOUT GOING HOME TODAY, ADVISED HAD NOT SEEN DC ORDERS YET BUT WILL LET HER KNOW WHEN SEEN. NO OTHER NEEDS VOICED, NO S/SX OF DISTRESS, CL IN REACH CONTINUE WITH PLAN OF CARE
[2019-12-03] MEDS ORDERED: LISINOPRIL10 MG PO (11:53)
[2019-12-03] MEDS ORDERED: HCTZ25 MG PO (11:53)
[2019-12-03 12:18] LABS: APPEARANCE CLEAR (CLEAR); BILIRUBIN NEGATIVE (NEGATIVE); COLOR YELLOW (YELLOW); GLUCOSE NEGATIVE (NEGATIVE); KETONE SMALL mg/dL (NEGATIVE); NITRITE NEGATIVE (NEGATIVE); PROTEIN NEGATIVE (NEGATIVE)
[2019-12-03 12:24] LABS: BACTERIA FEW /hpf (NEGATIVE); EPITHELIAL CELLS 0-5 /hpf (0-5); RED CELLS - URINE 0-5 /hpf (0-5); WHITE CELLS - URINE 0-5 /hpf (NEGATIVE)
--- NOTE | 2019-12-03 13:10 | NUR ---
PT STATED SHE IS NOT FEELING TO WELL AND IS HAVING A HARD TIME BREATHING AND HER SIDE HURTS. PT HAD BEEN OFF O2 AND THEN PLACED BACK ON O2 STATING AT 98. PAGED JASON TO LET HER KNOW. CONTINUE WITH PLAN OF CARE
[2019-12-03 13:38] VITALS: BP 189/103
--- NOTE | 2019-12-03 14:31 | NUR ---
ASSISTED PT TO BATHROOM WITH PT O2 OFF AND PT O2 WENT DOWN TO 85%, PLACED O2 BACK ON PT AT 2L AND DC IS CANCELLED FOR TODAY. DR WILSON AND IR NOTIFIED. CONTINUE WITH PLAN OF CARE
--- NOTE | 2019-12-03 16:55 | NUR ---
LYING IN BED,WITHOUT NEEDS.CALL LIGHT IN REACH
[2019-12-03 17:12] VITALS: BP 175/93
[2019-12-03 20:00] VITALS: BP 174/103
--- NOTE | 2019-12-03 20:10 | NUR ---
SITTING UP IN BED. ALERT AND ORIENTED X4. DENIES PAIN. RESP IRREG. SOB NOTED. O2 @ 2L/NC. DENIES COUGH. LAP SITES NOTED TO ABD WITH STERI STRIPS. BILI DRAIN NOTED TO RT ABD WITH GREEN DRAINAGE IN BAG BUT IS CLAMPED. ABD DISTENDED. STATES SHE HAD A BM TODAY AND DOESNT WANT THE SENEKOT THAT IS ORDERED. AMBULATES WITH WALKER. SCDS IN USE BILAT. SR ELEVATED X2. CL IN REACH.
--- NOTE | 2019-12-03 21:30 | NUR ---
MEDICATED WITH APRESOLING FOR ELEVATED B/P. DENIES H/A OR DIZZINESS. CL IN REACH.
[2019-12-04] VITALS (10 sets, daily range): BP systolic 160–189; BP diastolic 90–110
--- NOTE | 2019-12-04 02:18 | NUR ---
LYING IN BED. RESP NONLABORED. NO DISTRESS. DENIES PAIN. CL IN REACH.
--- NOTE | 2019-12-04 03:24 | NUR ---
MEDICATED WITH HYDRALAZINE FOR ELEVATED B/P 180/99. CL IN REACH. NO DISTRESS.
[2019-12-04 06:13] LABS: BASOPHILS 0 % (0-2); EOSINOPHILS 0.2 % (0-7); HEMATOCRIT 33.9 % (36.0-48.0); HEMOGLOBIN 10.9 g/dL (12-16); IMMATURE GRANULOCYTES 0.5 % (0-5); LYMPHOCYTES 6.4 % (15-50); MCH 27.7 pg (26.0-34.0); MCHC 32.2 g/dL (31.0-37.0); MCV 86.3 fL (80.0-100.0); MEAN PLATELET VOLUME 9.3 fL (7.4-10.4); MONOCYTES 8.9 % (2-11); PLATELET COUNT 221 10x3/uL (130-400); RBC 3.93 10x6/uL (4.00-5.40); RDW 15.9 % (11.5-14.5); WBC 10.7 10x3/uL (4.8-10.8)
--- NOTE | 2019-12-04 06:22 | NUR ---
ASSISTED UP TO BR TO VOID. VERY SOB. O2 @ 2LNC.
[2019-12-04 06:53] LABS: ALKALINE PHOSPHATASE 145 U/L (46-116); ALT (SGPT) 79 U/L (10-68); BILIRUBIN - TOTAL 1.35 mg/dL (0.2-1.3); CALC OSMOLALITY 271 mosm/kg (275-300); CALCIUM 8.5 mg/dL (8.5-10.1); CARBON DIOXIDE 27.4 mmol/L (21.0-32.0); CHLORIDE - SERUM 102 mmol/L (98-107); CREATININE - SERUM 0.6 mg/dL (0.6-1.3); GLUCOSE 103 mg/dL (74-106); POTASSIUM - SERUM 3.1 mmol/L (3.5-5.1); PROTEIN - SERUM 6.4 g/dL (6.4-8.2); SODIUM 137 mmol/L (136-145); eGFR NON AFRICAN AMERICAN > 90 mL/min (90-120)
[2019-12-04 06:57] LABS: UREA NITROGEN 6 mg/dL (7-18)
--- NOTE | 2019-12-04 07:51 | NUR ---
PT IS RESTING IN BED WITH EYES CLOSED. RESPIRATIONS ARE EVEN AND UNLABORED. PT IS EASILY AROUSED WITH VERBAL STIMULATION. PT REPORTS "EXTREME" SOB WITH EXERTION. O2 VIA NC @2L. PT DENIES PRESENCE OF PAIN/N/V. INCENTIVE SPIROMETER AT BEDSIDE. PT GIVES APPROPRIATE DEMONSTRATION ON USE OF INCENTIVE SPIROMETER. SCDS ARE ON. BILI DRAIN IN PLACE. DRESSING IS CDI. SCANT AMOUNT OF GREEN FLUID NOTED TO COLLECTION BAG. LAP SITES TO ABDOMENT X 2. ABDOMEN IS DISTENDED. BS ACTIVE X 4. PIV TO RIGHT WRIST INFUSING WITOHUT DIFFICUTLY. BED IS IN THE LOWEST POSITION. CALL LIGHT AND BEDSIDE TABLE ARE WITHINR EACH. SIDE RAILS X 2. PT DENIES FURTHER NEEDS. WILL CONT TO MONITRO.
--- NOTE | 2019-12-04 14:34 | NUR ---
PT AMBULATES FROM BED TO BATHROOM WITHOUT DIFFICULTY IN AMBULATION. PT IS VERY SOB WITH AMBULATION. PT DENIES PRESENCE OF DIZZINESS. PT AMBULATES FROM BATHROOM TO BEDSIDE CHAIR AND STATES "I AM GOING TO TRY AND SIT UP FOR A LITTLE WHILE". PT DENIES FURTHER NEEDS.
--- NOTE | 2019-12-04 20:10 | NUR ---
LYING ON LT SIDE IN BED. ALERT AND ORIENTED X4. RESP IRREG, SOB NOTED. O2 @ 2L/NC. ABD DISTENDED AND FIRM. STERISTRIPS NOTED TO LAP SITES ON ABD. BILIDRAIN NOTED TO RUQ WITH GREEN DRAINAGE IN TUBING. DENIES PAIN. SALINE LOCK TO RT WRIST IS SWOLLEN. AMB WITH WALKER WITH STANDBY ASSIST. CL IN REACH.
--- NOTE | 2019-12-04 22:20 | NUR ---
IV RESTARTED IN LT WRIST WITH 20G X1 ATTEMPT. PT FEI WELL. CL IN REACH.
[2019-12-05] VITALS (13 sets, daily range): BP systolic 146–185; BP diastolic 79–113
--- NOTE | 2019-12-05 05:00 | NUR ---
JOSEPH PERFORMED AT THIS TIME.
[2019-12-05 05:15] LABS: BASOPHILS 0.1 % (0-2); EOSINOPHILS 0.2 % (0-7); HEMATOCRIT 35.8 % (36.0-48.0); HEMOGLOBIN 11.7 g/dL (12-16); MCH 27.9 pg (26.0-34.0); MCHC 32.7 g/dL (31.0-37.0); MCV 85.4 fL (80.0-100.0); MEAN PLATELET VOLUME 9.4 fL (7.4-10.4); MONOCYTES 8.1 % (2-11); NEUTROPHILS 81.6 % (40-80); PLATELET COUNT 250 10x3/uL (130-400); RBC 4.19 10x6/uL (4.00-5.40)
[2019-12-05 05:37] LABS: ALBUMIN 2.2 g/dL (3.4-5.0); ALKALINE PHOSPHATASE 156 U/L (46-116); ALT (SGPT) 73 U/L (10-68); BILIRUBIN - TOTAL 1.12 mg/dL (0.2-1.3); CALC OSMOLALITY 274 mosm/kg (275-300); CALCIUM 8.7 mg/dL (8.5-10.1); CARBON DIOXIDE 30.7 mmol/L (21.0-32.0); CHLORIDE - SERUM 100 mmol/L (98-107); CREATININE - SERUM 0.7 mg/dL (0.6-1.3); GLUCOSE 108 mg/dL (74-106); POTASSIUM - SERUM 3.1 mmol/L (3.5-5.1); PROTEIN - SERUM 6.8 g/dL (6.4-8.2); SODIUM 138 mmol/L (136-145); eGFR NON AFRICAN AMERICAN 90 mL/min (90-120)
[2019-12-05 05:57] LABS: UREA NITROGEN 8 mg/dL (7-18)
--- NOTE | 2019-12-05 07:58 | NUR ---
PATIENT LAYING ON BACK. TALKING ON PHONE. NO NEEDS AT THIS TIME. CL IN REACH. WCTM
[2019-12-05 08:54] LABS: APTT 34.8 SECONDS (22.8-39.4); INR 1.14 (0.85-1.17); PROTIME 14.5 SECONDS (11.6-15.0)
[2019-12-05 10:37] LABS: PROTEIN - BODY FLUID 3.9 G/DL
--- NOTE | 2019-12-05 11:10 | NUR ---
PATIENT HAS AN INCISION FROM THORACENTESIS ON RIGHT MID BACK. CDI. CL IN REACH. NO FURTHER NEEDS AT THIS TIME. WCTM
[2019-12-05 11:25] LABS: NEUT - BF 58 %
[2019-12-05 11:26] LABS: MACROPHAGES BF 22 %
--- NOTE | 2019-12-05 12:03 | NUR ---
PATIENT FEELS LIKE SHE "HAS A SLIGHT FEVER." TEMP ORALLY SAID 99.1. COOL WASH CLOTH PROVIDED. CL IN REACH. NO FURTHER NEEDS AT THIS TIME.
--- NOTE | 2019-12-05 20:00 | NUR ---
ALERT RESTING IN BED, DENIES PAIN OR NEEDS AT THIS TIME, SEE SHIFT ASSESSMENT, CALL LIGHT IN REACH
[2019-12-06 00:17] VITALS: BP 140/88
[2019-12-06 04:15] VITALS: BP 152/94
[2019-12-06 06:07] LABS: BASOPHILS 0.1 % (0-2); EOSINOPHILS 0.2 % (0-7); HEMOGLOBIN 10.6 g/dL (12-16); IMMATURE GRANULOCYTES 0.5 % (0-5); MCH 28.5 pg (26.0-34.0); MCHC 33.1 g/dL (31.0-37.0); MEAN PLATELET VOLUME 9.5 fL (7.4-10.4); MONOCYTES 10.3 % (2-11); NEUTROPHILS 81.9 % (40-80); PLATELET COUNT 256 10x3/uL (130-400); RBC 3.72 10x6/uL (4.00-5.40); RDW 16.1 % (11.5-14.5); WBC 9.3 10x3/uL (4.8-10.8)
[2019-12-06 06:40] LABS: ALKALINE PHOSPHATASE 130 U/L (46-116); ALT (SGPT) 68 U/L (10-68); CALC OSMOLALITY 274 mosm/kg (275-300); CALCIUM 8.1 mg/dL (8.5-10.1); CARBON DIOXIDE 31.5 mmol/L (21.0-32.0); CHLORIDE - SERUM 101 mmol/L (98-107); CREATININE - SERUM 0.6 mg/dL (0.6-1.3); GLUCOSE 113 mg/dL (74-106); POTASSIUM - SERUM 3.5 mmol/L (3.5-5.1); PROTEIN - SERUM 6.4 g/dL (6.4-8.2); SODIUM 137 mmol/L (136-145); UREA NITROGEN 12 mg/dL (7-18); eGFR NON AFRICAN AMERICAN > 90 mL/min (90-120)
--- NOTE | 2019-12-06 07:45 | NUR ---
PT SITTING UP IN CHAIR. RR EVEN AND UNLABORED ON 2L NC. DENIES NEEDS OR PAIN AT THIS TIME. BED IN LOWEST POSITION. CALL LIGHT WITHIN REACH. WILL CONTINUE TO MONITOR.
[2019-12-06 09:23] VITALS: BP 175/98
--- NOTE | 2019-12-06 10:34 | NUR ---
PT INSISTED ON GIVING SELF A BATH. GOWN CHANGED.
[2019-12-06 13:12] VITALS: BP 150/84
[2019-12-06 15:11] LABS: % SATURATION 17 % (15-55); IRON 23 ug/dl (35-150); TOTAL IRON BIND CAPACITY 132 ug/dl (260-445); UNSAT IRON BIND CAPACITY 109 ug/dl (150-375)
--- NOTE | 2019-12-06 15:24 | NUR ---
NUTRITION F/U CHART REVIEWED, PT VISIT. PT REPORTS TOLERATING REG DIET. 25 TO 50% INTAKE RECENT MEALS. PT STATES APPETITE IS SLOWLY IMPROVING. WILL CONTINUE TO PROVIDE DIET, MONITOR PO INTAKE. RD FOLLOWING
[2019-12-06 17:20] VITALS: BP 179/99
--- NOTE | 2019-12-06 17:30 | NUR ---
I have reviewed this patient and I concur with the Shift Assessment completed by the Licensed Practical Nurse today this shift.
[2019-12-06 18:08] LABS: ACID FAST SMEAR Negative (()); AFB SPECIMEN PROCESSING Concentration (())
[2019-12-06 20:00] VITALS: BP 155/93
--- NOTE | 2019-12-06 20:00 | NUR ---
ALERT RESTING IN BED, DENIES PAIN OR NEEDS AT THIS TIME, SEE SHIFT ASSESSMENT, CALL LIGHT IN REACH
[2019-12-07 00:39] VITALS: BP 133/82
[2019-12-07 04:00] VITALS: BP 125/98
[2019-12-07 05:24] LABS: BASOPHILS 0.1 % (0-2); EOSINOPHILS 0.3 % (0-7); HEMATOCRIT 34.8 % (36.0-48.0); HEMOGLOBIN 11.2 g/dL (12-16); IMMATURE GRANULOCYTES 0.7 % (0-5); LYMPHOCYTES 7.6 % (15-50); MCH 27.5 pg (26.0-34.0); MCHC 32.2 g/dL (31.0-37.0); MCV 85.3 fL (80.0-100.0); MEAN PLATELET VOLUME 9.2 fL (7.4-10.4); MONOCYTES 10.8 % (2-11); NEUTROPHILS 80.5 % (40-80); PLATELET COUNT 290 10x3/uL (130-400); RBC 4.08 10x6/uL (4.00-5.40); RDW 15.8 % (11.5-14.5); WBC 9.1 10x3/uL (4.8-10.8)
[2019-12-07 06:02] LABS: ALBUMIN 2.2 g/dL (3.4-5.0); ALKALINE PHOSPHATASE 121 U/L (46-116); ALT (SGPT) 59 U/L (10-68); BILIRUBIN - TOTAL 0.68 mg/dL (0.2-1.3); CALC OSMOLALITY 270 mosm/kg (275-300); CARBON DIOXIDE 30.2 mmol/L (21.0-32.0); CHLORIDE - SERUM 99 mmol/L (98-107); CREATININE - SERUM 0.7 mg/dL (0.6-1.3); GLUCOSE 112 mg/dL (74-106); POTASSIUM - SERUM 3.3 mmol/L (3.5-5.1); PROTEIN - SERUM 6.8 g/dL (6.4-8.2); SODIUM 136 mmol/L (136-145); eGFR NON AFRICAN AMERICAN 90 mL/min (90-120)
[2019-12-07 06:10] LABS: UREA NITROGEN 8 mg/dL (7-18)
[2019-12-07 08:13] VITALS: BP 131/86
--- NOTE | 2019-12-07 10:05 | NUR ---
PT ALERT X 4. BREATH SOUNDS CLEAR BILAT, SHALLOW. IV TO RIGHT HAND, PATENT, DRESSING CDI. DRAIN TO RIGHT SIDE. PT EXPECTING DISCHARGE HOME TODAY. PT REPORTING NO PAIN AT THIS TIME. BED LOW, CALL LIGHT IN REACH. NO OTHER NEEDS AT THIS TIME.
[2019-12-07] MEDS ORDERED: LEVAQUIN750 MG PO (10:08)
[2019-12-07] MEDS ORDERED: FLAGYL500 MG PO (10:08)
--- NOTE | 2019-12-07 12:56 | MORECARE ---
CASE MANAGEMENT DISCHARGE SUMMARY PATIENT: ANSLEY DAS UNIT: [id number] ADM DATE: 11/28/19 AGE: 59 : 58 SEX: F ROOM/BED: D.2228 AUTHOR: MITCHELL MARKS PHYSICIAN: REFERRING PHYSICIAN: COLT CANADA MD DATE OF SERVICE: 12/07/19 Discharge Plan Patient Name: ANSLEY DAS Facility: [facility]:[place] : 1960 Planned Disposition: Home Anticipated Discharge Date: 12/01/19 Discharge Date: Expected LOS: 3 Initial Reviewer: [email or web address] Initial Review Date: 11/30/2019 Generated: 12/07/19 1:56 pm Comments DCP- Discharge Planning Updated by [email or web address]: Angie Anoop on 12/07/19 11:[address] OXYGEN SATURATION IS 97% ON ROOM AIR AT REST AND 90% WITH EXERTION. SHE DOES NOT QUALIFY FOR HOME OXYGEN. ANTICIPATE DISCHARGE HOME TODAY, NO NEEDS. CM WILL CONTINUE TO FOLLOW AND ASSIST WITH DISCHARGE PLANNING/NEEDS. DCP- Discharge Planning Updated by [email or web address]: Angie Davalos on 11/30/19 2:[address] Patient Name: ANSLEY DAS Admission Status: ER Accout number: [id number] Admission Date: 11-28-2019 : 1960 Admission Diagnosis: Attending: COLT CANADA Current LOS: 2 Anticipated DC Date: 12-01-2019 Planned Disposition: Home Primary Insurance: UNINSURED DISCOUNT PLAN Discharge Planning Comments: CM met with patient to complete initial dc planning assessment. CM educated patient on the CM role and verbal consent given by patient to complete assessment. Patient lives at home with her daughter (Mili). Her mother is on hospice and also living in the home. At discharge patient plans to return and feels this is a safe discharge. CM discussed availability of home health, rehab services, and medical equipment. Patient denied known discharge needs at this time. Mili (daughter) will drive her home on discharge. CM will continue to follow and will assist as needed with dc plans/needs. Auto Garage Attendant: Angie Davalos DCPIA - Discharge Planning Initial Assessment Updated by [email or web address]: Angie Davalos on 11/30/19 3:14 pm * Is the patient Alert and Oriented? Yes * How many steps to enter\exit or inside your home? 2/ * PCP Dr. Pineda in [place] * Pharmacy [facility] in [place] * Preadmission Environment Home with Family * ADLs Independent * Equipment None * List name and contact numbers for known caregivers / representatives who currently or will assist patient after discharge: [facility]a [facility] - [phone] * Verbal permission to speak to the caregivers and representatives has been obtained from the patient. Yes * Community resources currently utilized None * Additional services required to return to the preadmission environment? No * Can the patient safely return to the preadmission environment? Yes * Has this patient been hospitalized within the prior 30 days at any hospital? No Last DP export: 11/30/19 2:19 pm Patient Name: ANSLEY DAS Page [id number] at 1256 All edits/amendments must be made on the electronic document DICTATION DATE: 12/07/19 1256 PUBLIC INFORMATION COORDINATOR: YOSHI 12/07/19 1256 RPT#: [id number] DC DATE: STATUS: ADM IN [facility] [address] [place] [address] END OF REPORT
[2019-12-07 13:05] VITALS: BP 142/83
[2019-12-07] MEDS ORDERED: LOPRESSOR25 MG PO (13:08)
--- NOTE | 2019-12-07 13:51 | MORECARE ---
CASE MANAGEMENT DISCHARGE SUMMARY PATIENT: ANSLEY DAS UNIT: [id number] ADM DATE: 11/28/19 AGE: 59 : 58 SEX: F ROOM/BED: D.2228 AUTHOR: MITCHELL MARKS PHYSICIAN: REFERRING PHYSICIAN: COLT CANADA MD DATE OF SERVICE: 12/07/19 Discharge Plan Patient Name: ANSLEY DAS Facility: [facility]:[place] : 1960 Planned Disposition: Home Anticipated Discharge Date: 12/01/19 Discharge Date: Expected LOS: 3 Initial Reviewer: [email or web address] Initial Review Date: 11/30/2019 Generated: 12/07/19 2:51 pm Comments DCP- Discharge Planning Updated by [email or web address]: Angie Davalos on 12/07/19 12:[address] Patient's NS flushes are ready at [facility], cost is 25.58 and she states she can afford to purchase them. Daughter is here to transfer her home. DCP- Discharge Planning Updated by [email or web address]: Angie Davalos on 12/07/19 11:[address] OXYGEN SATURATION IS 97% ON ROOM AIR AT REST AND 90% WITH EXERTION. SHE DOES NOT QUALIFY FOR HOME OXYGEN. ANTICIPATE DISCHARGE HOME TODAY, NO NEEDS. CM WILL CONTINUE TO FOLLOW AND ASSIST WITH DISCHARGE PLANNING/NEEDS. DCP- Discharge Planning Updated by [email or web address]: Angie Daavlos on 11/30/19 2:[address] Patient Name: ANSLEY DAS Admission Status: ER Accout number: [id number] Admission Date: 11-28-2019 : 1960 Admission Diagnosis: Attending: COLT CANADA Current LOS: 2 Anticipated DC Date: 12-01-2019 Planned Disposition: Home Primary Insurance: UNINSURED DISCOUNT PLAN Discharge Planning Comments: CM met with patient to complete initial dc planning assessment. CM educated patient on the CM role and verbal consent given by patient to complete assessment. Patient lives at home with her daughter (Mili). Her mother is on hospice and also living in the home. At discharge patient plans to return and feels this is a safe discharge. CM discussed availability of home health, rehab services, and medical equipment. Patient denied known discharge needs at this time. Mili (daughter) will drive her home on discharge. CM will continue to follow and will assist as needed with dc plans/needs. Melt House Drag Operator: Angie Davalos DCPIA - Discharge Planning Initial Assessment Updated by [email or web address]: Angie Anoop on 11/30/19 3:14 pm * Is the patient Alert and Oriented? Yes * How many steps to enter\exit or inside your home? 12/24 * PCP Dr. Pineda in [place] * Pharmacy [facility] in [place] * Preadmission Environment Home with Family * ADLs Independent * Equipment None * List name and contact numbers for known caregivers / representatives who currently or will assist patient after discharge: Mili Cuenca - DTR - [phone] * Verbal permission to speak to the caregivers and representatives has been obtained from the patient. Yes * Community resources currently utilized None * Additional services required to return to the preadmission environment? No * Can the patient safely return to the preadmission environment? Yes * Has this patient been hospitalized within the prior 30 days at any hospital? No Last DP export: 12/07/19 11:56 a Patient Name: ANSLEY DAS Page 95037 at 1351 All edits/amendments must be made on the electronic document DICTATION DATE: 12/07/19 1351 RESIDENTIAL CAREGIVER: YOSHI 12/07/19 1351 RPT#: [id number] DC DATE: STATUS: ADM IN [facility] [address] [place] [address] END OF REPORT
[2019-12-07 14:09] LABS: FUNGUS STAIN Final report (())
--- NOTE | 2019-12-07 14:20 | NUR ---
DISCHARGE PAPERWORK SIGNED, ALL QUESTIONS ANSWERED. IV TO RIGHT HAND DC'D, TIP INTACT. ESCORTED OUT BY WHEELCHAIR.
--- NOTE | 2019-12-08 08:32 | MORECARE ---
CASE MANAGEMENT DISCHARGE SUMMARY PATIENT: ANSLEY DAS UNIT: [id number] ADM DATE: 11/28/19 AGE: 59 : 58 SEX: F ROOM/BED: D.2228 AUTHOR: MITCHELL MARKS PHYSICIAN: REFERRING PHYSICIAN: COLT CANADA MD DATE OF SERVICE: 12/08/19 Discharge Plan Patient Name: ANSLEY DAS Facility: [facility]:[place] : 1960 Planned Disposition: Home Anticipated Discharge Date: 12/01/19 Discharge Date: 12/07/2019 Expected LOS: 3 Initial Reviewer: [email or web address] Initial Review Date: 11/30/2019 Generated: 12/08/19 9:31 am Comments DCP- Discharge Planning Updated by [email or web address]: Angie Davalos on 12/07/19 12:[address] Patient's NS flushes are ready at [facility], cost is 25.58 and she states she can afford to purchase them. Daughter is here to transfer her home. DCP- Discharge Planning Updated by [email or web address]: Angie Davalos on 12/07/19 11:[address] OXYGEN SATURATION IS 97% ON ROOM AIR AT REST AND 90% WITH EXERTION. SHE DOES NOT QUALIFY FOR HOME OXYGEN. ANTICIPATE DISCHARGE HOME TODAY, NO NEEDS. CM WILL CONTINUE TO FOLLOW AND ASSIST WITH DISCHARGE PLANNING/NEEDS. DCP- Discharge Planning Updated by [email or web address]: Angie Davalos on 11/30/19 2:[address] Patient Name: ANSLEY DAS Admission Status: ER Accout number: [id number] Admission Date: 11-28-2019 : 1960 Admission Diagnosis: Attending: COLT CANADA Current LOS: 2 Anticipated DC Date: 12-01-2019 Planned Disposition: Home Primary Insurance: UNINSURED DISCOUNT PLAN Discharge Planning Comments: CM met with patient to complete initial dc planning assessment. CM educated patient on the CM role and verbal consent given by patient to complete assessment. Patient lives at home with her daughter (Mili). Her mother is on hospice and also living in the home. At discharge patient plans to return and feels this is a safe discharge. CM discussed availability of home health, rehab services, and medical equipment. Patient denied known discharge needs at this time. Mili (daughter) will drive her home on discharge. CM will continue to follow and will assist as needed with dc plans/needs. Die Trimmer: Angie Davalos DCPIA - Discharge Planning Initial Assessment Updated by [email or web address]: Angie Anoop on 11/30/19 3:14 pm * Is the patient Alert and Oriented? Yes * How many steps to enter\exit or inside your home? 12/24 * PCP Dr. Pineda in [place] * Pharmacy [facility] in [place] * Preadmission Environment Home with Family * ADLs Independent * Equipment None * List name and contact numbers for known caregivers / representatives who currently or will assist patient after discharge: Mili Cuenca - DTR - [phone] * Verbal permission to speak to the caregivers and representatives has been obtained from the patient. Yes * Community resources currently utilized None * Additional services required to return to the preadmission environment? No * Can the patient safely return to the preadmission environment? Yes * Has this patient been hospitalized within the prior 30 days at any hospital? No Last DP export: 12/07/19 12:51 p Patient Name: ANSLEY DAS Page 00227 at 0832 All edits/amendments must be made on the electronic document DICTATION DATE: 12/08/19830 DRYWALL SANDER: YOSHI 12/08/19830 RPT#: [id number] DC DATE:12/07/19 STATUS: DIS IN [facility] [address] [place] [address] END OF REPORT
--- NOTE | 2019-12-08 13:25 | EC ---
PATIENT:ANSLEY DAS DATE OF SERVICE: 11/28/19 SEX: F MEDICAL RECORD: [id number] DATE OF : 58 LOCATION:[facility] AGE OF PATIENT: 59 ADMISSION DATE: 11/28/19 REFERRING PHYSICIAN: INTERPRETING PHYSICIAN: CAMILA TOLEDO MD ECHOCARDIOGRAM REPORT ECHO CHARGES 4 ECHO COMPLETE Date: 12/05/19 CLINICAL DIAGNOSIS: PLEURAL EFFUSION ECHOCARDIOGRAPHIC MEASUREMENTS (adult normal given) AC root (d.<3.7cm) 2.8 cm LV Septum d (<1.2 cm> 1.2 cm Valve Excursion 1.3 cm LV Septum (systole) 1.3 cm Left Atria (s.<4.0cm> 3.3 cm LVPW d(<1.2cm) 0.8 cm RV (d.<2.3cm) 2.8 cm LVPW (sytole) 1.3 cm LV diastole(<5.6CM) 4.9 cm MV E-F(>70mm/sec) cm LV systole 3.9 cm LVOT Diameter 1.8 cm MV exc.(>10mm) cm Est.ejection fraction (50-75%) % DOPPLER: LVIT cm/sec A 37 cm/sec E 128 cm/sec LA cm/sec RVSP 37.9 mmHg LVOT 140 cm/sec AOP1/2T m/s Asc. Ao 198 cm/sec RVOT 51 cm/sec RA cm/sec PA 122 cm/sec AV Gradient Peak 15.6 mmHg AV Mean 9.6 mmHg AV Area 1.7 cm MV Gradient Peak 9.5 mmHg MV Mean 3.8 mmHg MV Area cm COMMENTS: Specialist Managers: Alisha ELY Machine Compositor: 3 Dr. Donnelly TAPE# PACS Pericardial Effusion N DATE OF SERVICE: Adequate 2D, color flow imaging, spectral Doppler, and M-Mode. Borderline LVH. LV internal dimension is normal. Wall motion is normal. EF is greater than or equal to 55%. Aortic valve is tricuspid with no evidence of stenosis by Doppler interrogation. Left atrium is normal. Mitral valve shows no prolapse. Trace MR. Right-sided chambers grossly normal. Mild TR. TRANSINT:[id number] Voice Confirmation ID: [id number] DOCUMENT ID: [id number] ECHOCARDIOGRAM REPORT [id number] DASANSLEY GRAY CAMILA TOLEDO MD at 1325 CC: [id number] DICTATION DATE: 12/06/19 1359 MOTION PICTURES CARTOONIST: 12/06/191919 DIS IN 12/07/[address] [facility] [address] [place] [address]
[2019-12-08 16:08] LABS: FUNGUS MYCOLOGY CULTURE Preliminary report (())
== END 2019-12-07 14:23 | disposition home or self-care (01) | DRG 417 ==
LOC: D.ER 03:09 → D.MS 04:26
PROVIDERS: Family Medicine; General Practice; Internal Medicine Nephrology; Internal Medicine Pulmonary Disease; Radiology Diagnostic Radiology; Surgery; ADMIT Emergency Medicine; ATTEND Emergency Medicine
PROC: 0DJ08ZZ Inspection of Upper Intestinal Tract, Via Natural or Artificial Opening Endoscopic (ICD-10-PCS; 2019-11-28)
PROC: 0F9130Z Drainage of Right Lobe Liver with Drainage Device, Percutaneous Approach (ICD-10-PCS; 2019-11-29)
PROC: BF121ZZ Fluoroscopy of Gallbladder using Low Osmolar Contrast (ICD-10-PCS; 2019-11-30)
PROC: 0FT44ZZ Resection of Gallbladder, Percutaneous Endoscopic Approach (ICD-10-PCS; principal; 2019-11-30 11:00)
PROC: 0FC93ZZ Extirpation of Matter from Common Bile Duct, Percutaneous Approach (ICD-10-PCS; 2019-12-02)
PROC: 0F20X0Z Change Drainage Device in Liver, External Approach (ICD-10-PCS; 2019-12-02)
PROC: 0W993ZZ Drainage of Right Pleural Cavity, Percutaneous Approach (ICD-10-PCS; 2019-12-05)
DX: K80.63 Calculus of gallbladder and bile duct with acute cholecystitis with obstruction (principal); J96.01 Acute respiratory failure with hypoxia; J18.9 Pneumonia, unspecified organism; Z68.41 Body mass index [BMI] 40.0-44.9, adult; J90 Pleural effusion, not elsewhere classified; E86.0 Dehydration; K76.89 Other specified diseases of liver; E66.9 Obesity, unspecified